=== PATIENT | female | born 1955 | race Caucasian/White ===

== ENCOUNTER 2019-04-26 13:27 | Emergency (ER) | payer BC, MEDICAID, OTHER ==
[2019-04-26] MEDS ORDERED: Sodium Chloride 0.9% 2.5 ML Syringe FLUSH PRN (14:04)
[2019-04-26] MEDS ORDERED: Sodium Chloride 0.9% 10 ML Syringe FLUSH PRN (14:04)
--- NOTE | 2019-04-26 14:47 | EDM.PDOC ---
ED HPI GENERAL MEDICAL PROBLEM - General Chief Complaint: Abdominal Pain Stated Complaint: NAUSEA/VOMITING/DIAHREA Time Seen by Provider: 04/26/19 14:39 - History of Present Illness INITIAL COMMENTS - FREE TEXT/NARRATIVE: HISTORY AND PHYSICAL: History of present illness: Patient is a 63-year-old white female who has a remote history of irritable bowel syndrome presents with concern of intermittent abdominal pain off and on for approximately 1 month with some diarrhea she denies vomiting fever chills or other complaints last episode diarrhea was this morning. Patient also has history of hypertension Review of systems: As per history of present illness and below otherwise all systems reviewed and negative. Past medical history: As per history of present illness and as reviewed below otherwise noncontributory. Surgical history: As per history of present illness and as reviewed below otherwise noncontributory. Social history: No reported history of drug or alcohol abuse. Family history: As per history of present illness and as reviewed below otherwise noncontributory. Physical exam: HEENT: Atraumatic, normocephalic, pupils reactive, negative for conjunctival pallor or scleral icterus, mucous membranes moist, throat clear, neck supple, nontender, trachea midline. Lungs: Clear to auscultation, breath sounds equal bilaterally, chest nontender. Heart: S1S2, regular, negative for clicks, rubs, or JVD. Abdomen: Soft, nondistended, no localized tenderness Negative for masses or hepatosplenomegaly. Negative for costovertebral tenderness. Pelvis: Stable nontender. Genitourinary: Deferred. Rectal: Deferred. Extremities: Atraumatic, negative for cords or calf pain. Neurovascular unremarkable. Neuro: Awake, alert, oriented. Cranial nerves II through XII unremarkable. Cerebellum unremarkable. Motor and sensory unremarkable throughout. Exam nonfocal. Diagnostics: CBC CMP UA lipase stool for C&S O&P C. difficile CT abdomen and pelvis Therapeutics: Saline 1 L bolus labetalol 20 mg IV Impression: #1 intermittent abdominal pain #2 diarrhea #3 hypertension Definitive disposition and diagnosis as appropriate pending reevaluation and review of above. Abdominal Pain Score (Numeric/FACES): 7 - Related Data Allergies Allergy/AdvReac Type Severity Reaction Status Date / Time No Known Allergies Allergy Verified 04/26/19 13:42 Home Meds: Home Meds Aspirin [Opal Chewable Aspirin] 81 mg PO DAILY 04/24/14 [History] Metoprolol Succinate 50 mg PO DAILY 04/24/14 [History] Rosuvastatin Calcium [Crestor] 40 mg PO DAILY 05/26/16 [History] Escitalopram [Lexapro] 10 mg PO DAILY 04/26/19 [History] Valsartan/Hydrochlorothiazide [Diovan Hct 160-12.5 mg Tab] 1 tab PO DAILY [History] Past Medical History - Past Health History Medical/Surgical History: Denies Medical/Surgical History HEENT History: Reports: Impaired Vision Cardiovascular History: Reports: High Cholesterol, Hypertension, [place], Stents Other Cardiovascular History: s/p coronary stent Respiratory History: Reports: None Gastrointestinal History: Reports: Colon Polyp Other Gastrointestinal History: hx diverticulitis Genitourinary History: Reports: Renal Calculus 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: Musculoskeletal History: Reports: Fracture, Fibromyalgia Other Musculoskeletal History: left leg fracture, but no surgery Neurological History: Reports: None Psychiatric History: Reports: Anxiety Endocrine/Metabolic History: Reports: Obesity/BMI 30+ Hematologic History: Reports: Blood Transfusion(s) Other Hematologic History: blood transfusion after child Immunologic History: Reports: None Oncologic (Cancer) History: Reports: None Dermatologic History: Reports: None - Infectious Disease History Infectious Disease History: Reports: Chicken Pox, Measles, Mumps - Past Surgical History Head Surgeries/Procedures: Reports: None Cardiovascular Surgical History: Reports: Coronary Artery Stent Female Surgical History: Reports: Hysterectomy, Salpingo-Oophorectomy Other Musculoskeletal Surgeries/Procedures:: left big toe surgery Social & Family History - Family History Family Medical History: Noncontributory - Tobacco Use Smoking Status *Q: Current Every Day Smoker Years of Tobacco use: 20 Packs/Tins Daily: 0.2 - Caffeine Use Caffeine Use: Reports: Coffee Caffeine Use Comment: 2cups/day - Recreational Drug Use Recreational Drug Use: No ED ROS GENERAL - Review of Systems Review Of Systems: ROS reveals no pertinent complaints other than HPI. ED EXAM, GENERAL - Physical Exam Exam: See Below (See dictation) Course - Vital Signs Text/Narrative:: Patient's refusing CT scan refusing labetalol refusing any further interventions she requests discharged AGAINST MEDICAL ADVICE understands risks and advised to return if she has any change in heart and follow-up SHAE with her private medical doctor Last Recorded V/S: Last Vital Signs Temp 36.4 C 04/26/19 13:37 Pulse 56 L 04/26/19 13:37 Resp 18 04/26/19 13:37 BP 210/100 H 04/26/19 13:37 Pulse Ox 98 04/26/19 13:37 - Orders/Labs/Meds Orders: Active Orders 24 hr Category Date Time Status Abdomen Pelvis wo Cont [CT] Stat Exams 04/26/19 14:41 Ordered CDIFF TOX A+B [OP] Stat Lab 04/26/19 14:42 Ordered CULTURE STOOL + CAMPY+SHIGATOX [RM] Stat Lab 04/26/19 14:42 Ordered Sodium Chloride 0.9% [Saline Flush] Med 04/26/19 14:04 Active 10 ml FLUSH ASDIRECTED PRN Sodium Chloride 0.9% [Saline Flush] Med 04/26/19 14:04 Active 2.5 ml FLUSH ASDIRECTED PRN Isolation [COMM] Stat Oth 04/26/19 14:42 Ordered Saline Lock Insert [OM.PC] Stat Oth 04/26/19 14:04 Ordered Medication Orders Sodium Chloride (Saline Flush) 10 ml FLUSH ASDIRECTED PRN PRN Reason: Keep Vein Open Sodium Chloride (Saline Flush) 2.5 ml FLUSH ASDIRECTED PRN PRN Reason: Keep Vein Open Labs: Laboratory Tests 04/26/19 04/26/19 04/26/19 Range/Units 14:04 14:10 15:00 WBC 8.44 (4.0-11.0) K/uL RBC 4.35 (4.30-5.90) M/uL Hgb 13.2 (12.0-16.0) g/dL Hct 39.8 (36.0-46.0) % MCV 91.5 (80.0-98.0) fL MCH 30.3 (27.0-32.0) pg MCHC 33.2 (31.0-37.0) g/dL RDW Std Deviation 46.8 (28.0-62.0) fl RDW Coeff of Sundeep 14 (11.0-15.0) % Plt Count 316 (150-400) K/uL MPV 10.00 (7.40-12.00) fL Neut % (Auto) 68.0 (48.0-80.0) % Lymph % (Auto) 21.0 (16.0-40.0) % Cataño % (Auto) 7.2 (0.0-15.0) % Eos % (Auto) 3.4 (0.0-7.0) % Baso % (Auto) 0.4 (0.0-1.5) % Neut # (Auto) 5.7 (1.4-5.7) K/uL Lymph # (Auto) 1.8 (0.6-2.4) K/uL Cataño # (Auto) 0.6 (0.0-0.8) K/uL Eos # (Auto) 0.3 (0.0-0.7) K/uL Baso # (Auto) 0.0 (0.0-0.1) K/uL Nucleated RBC % 0.0 /100WBC Nucleated RBCs # 0 K/uL Sodium 142 (136-145) mmol/L Potassium 4.2 (3.5-5.1) mmol/L Chloride 107 (98-107) mmol/L Carbon Dioxide 25.6 (21.0-32.0) mmol/L BUN 12 (7.0-18.0) mg/dL Creatinine 0.7 (0.6-1.0) mg/dL Est Cr Clr Drug Dosing 74.98 mL/min Estimated GFR (MDRD) > 60.0 ml/min Glucose 89 (74-106) mg/dL Calcium 8.9 (8.5-10.1) mg/dL Total Bilirubin 0.2 (0.2-1.0) mg/dL AST 22 (15-37) IU/L ALT 22 (14-63) IU/L Alkaline Phosphatase 123 H (46-116) U/L Total Protein 6.9 (6.4-8.2) g/dL Albumin 3.8 (3.4-5.0) g/dL Globulin 3.1 (2.6-4.0) g/dL Albumin/Globulin Ratio 1.2 (0.9-1.6) Lipase 253 (73-393) U/L Urine Color YELLOW Urine Appearance CLEAR Urine pH 6.5 (5.0-8.0) Ur Specific Dike 1.010 (1.001-1.035) Urine Protein NEGATIVE (NEGATIVE) mg/dL Urine Glucose (UA) NEGATIVE (NEGATIVE) mg/dL Urine Ketones NEGATIVE (NEGATIVE) mg/dL Urine Occult Blood TRACE-LYSED H (NEGATIVE) Urine Nitrite NEGATIVE (NEGATIVE) Urine Bilirubin NEGATIVE (NEGATIVE) Urine Urobilinogen 0.2 (<2.0) EU/dL Ur Leukocyte Esterase NEGATIVE (NEGATIVE) Urine RBC NONE SEEN (0-2/HPF) Urine WBC NONE SEEN (0-5/HPF) Ur Epithelial Cells RARE (NONE-FEW) Urine Bacteria RARE (NEGATIVE) Meds: Medications Generic Name Dose Route Start Last Admin Trade Name Freq PRN Reason Stop Dose Admin Sodium Chloride 10 ml 04/26/19 14:04 Saline Flush FLUSH ASDIRECTED PRN Keep Vein Open Sodium Chloride 2.5 ml 04/26/19 14:04 Saline Flush FLUSH ASDIRECTED PRN Keep Vein Open Discontinued Medications Generic Name Dose Route Start Last Admin Trade Name Freq PRN Reason Stop Dose Admin Acetaminophen 1,000 mg 04/26/19 15:02 Tylenol Extra Strength PO 04/26/19 15:03 ONETIME ONE Ketorolac Tromethamine 30 mg 04/26/19 14:56 04/26/19 15:02 Toradol IVPUSH 04/26/19 14:57 Not Given ONETIME ONE Labetalol HCl 20 mg 04/26/19 15:09 Normodyne IVPUSH 04/26/19 15:10 ONETIME ONE Protocol Departure - Departure Time of Disposition: 15:51 Disposition: Against Medical Advice 07 Condition: Undetermined Clinical Impression: Abdominal pain, Hypertension, Medical non-compliance - Discharge Information Referrals: Mukul Sapp MD [Primary Care Provider] - Forms: ED Department Discharge Additional Instructions: The following information is given to patients seen in the emergency department who are being discharged to home. This information is to outline your options for follow-up care. We provide all patients seen in our emergency department with a follow-up referral. The need for follow-up, as well as the timing and circumstances, are variable depending upon the specifics of your emergency department visit. If you don't have a primary care physician on staff, we will provide you with a referral. We always advise you to contact your personal physician following an emergency department visit to inform them of the circumstance of the visit and for follow-up with them and/or the need for any referrals to a consulting specialist. The emergency department will also refer you to a specialist when appropriate. This referral assures that you have the opportunity for followup care with a specialist. All of these measure are taken in an effort to provide you with optimal care, which includes your followup. Under all circumstances we always encourage you to contact your private physician who remains a resource for coordinating your care. When calling for followup care, please make the office aware that this follow-up is from your recent emergency room visit. If for any reason you are refused follow-up, please contact the [facility] emergency department at and asked to speak to the emergency department charge nurse. Continue current home meds follow-up with private medical doctor SHAE return as needed as discussed - My Orders Last 24 Hours: My Active Orders 04/26/19 14:41 Abdomen Pelvis wo Cont [CT] Stat 04/26/19 14:42 CDIFF TOX A+B [OP] Stat CULTURE STOOL + CAMPY+SHIGATOX [RM] Stat Isolation [COMM] Stat - Assessment/Plan Last 24 Hours: My Active Orders 04/26/19 14:41 Abdomen Pelvis wo Cont [CT] Stat 04/26/19 14:42 CDIFF TOX A+B [OP] Stat CULTURE STOOL + CAMPY+SHIGATOX [RM] Stat Isolation [COMM] Stat
[2019-04-26] MEDS ORDERED: Ketorolac 30 MG/ML SDV IVPUSH ONE (14:56)
[2019-04-26] MEDS ORDERED: Acetaminophen 500 MG Tab PO ONE (15:02)
[2019-04-26] MEDS ORDERED: Labetalol 100 MG/20 ML MDV IVPUSH ONE (15:09)
[2019-04-26 15:11] LABS: CHLORIDE,CL 107 mmol/L (98-107); SODIUM,NA 142 mmol/L (136-145)
[2019-04-26 17:16] VITALS: BP 208/82
== END 2019-04-26 15:50 | disposition left against medical advice (07) ==
LOC: MW.ED 13:27
DX: R19.7 Diarrhea, unspecified (principal); R10.9 Unspecified abdominal pain; Z91.19 Patient's noncompliance with other medical treatment and regimen; I10 Essential (primary) hypertension; I25.2 Old myocardial infarction; Z79.82 Long term (current) use of aspirin; Z79.899 Other long term (current) drug therapy; E78.00 Pure hypercholesterolemia, unspecified; F17.210 Nicotine dependence, cigarettes, uncomplicated
CPT/HCPCS: 36415; 80053; 81001; 83690; 85025; 99284; J3490

== ENCOUNTER 2019-10-19 07:49 | Day surgery (SDC) | payer BC ==
[~2019-10-19 07:49] MED LIST: Lactated Ringers 1,000 ML IV SCH
[2019-10-19] MEDS ORDERED: Propofol 200 MG/20 ML SDV ONE ×3 (07:57→10:11)
[2019-10-19] MEDS ORDERED: fentaNYL 100 MCG/2 ML SDV ONE (07:57)
[2019-10-19] MEDS ORDERED: Midazolam 1 MG/ML 2 ML SDV ONE (07:57)
[2019-10-19] MEDS ORDERED: Lidocaine 2% 5 ML SDV ONE (07:57)
--- NOTE | 2019-10-19 08:47 | PCM.PREANE ---
Preanesthetic Assessment - Anesthesia/Transfusion/Family Hx Anesthesia History: Prior Anesthesia Reaction Other Type of Anesthesia Reaction Comment: hard to put to sleep because of anxiety Family History of Anesthesia Reaction: No Transfusion History: Prior Transfusion Without Reaction Intubation History: Unknown - Review of Systems General: No Symptoms Pulmonary: No Symptoms Cardiovascular: No Symptoms Gastrointestinal: Abdominal Pain Neurological: No Symptoms Other: Reports: None - Physical Assessment NPO Status Date: 10/18/19 NPO Status Time: 21:00 Vital Signs: Last Vital Signs Temp 35.2 C 10/19/19 08:00 Pulse 74 10/19/19 08:00 Resp 18 10/19/19 08:00 BP 191/86 H 10/19/19 08:00 Pulse Ox 99 10/19/19 08:00 Height: 5 ft 5 in Weight: 84.368 kg ASA Class: 2 Mental Status: Alert & Oriented x3 Airway Class: Mallampati = 2 Dentition: Reports: Normal Dentition Thyro-Mental Finger Breadths: 3 Mouth Opening Finger Breadths: 3 ROM/Head Extension: Full Lungs: Clear to Auscultation, Normal Respiratory Effort Cardiovascular: Regular Rate, Regular Rhythm - Allergies Allergies/Adverse Reactions: Allergies Allergy/AdvReac Type Severity Reaction Status Date / Time ketorolac [From Toradol] Allergy Nausea and Verified 10/14/19 13:19 Vomiting - Blood Blood Available: No - Anesthesia Plan Pre-Op Medication Ordered: None - Acknowledgements Anesthesia Type Planned: MAC Pt an Appropriate Candidate for the Planned Anesthesia: Yes Alternatives and Risks of Anesthesia Discussed w Pt/Guardian: Yes Pt/Guardian Understands and Agrees with Anesthesia Plan: Yes PreAnesthesia Questionnaire - Past Health History Medical/Surgical History: Denies Medical/Surgical History HEENT History: Reports: Other (See Below) Other HEENT History: wears glasses Cardiovascular History: Reports: High Cholesterol, Hypertension, [place] ('02) Other Cardiovascular History: s/p coronary stent '02 Respiratory History: Reports: Other (See Below) Other Respiratory History: uses an inhaler when she has URI- maybe twice a year Gastrointestinal History: Reports: Colon Polyp, Diverticulosis, Hepatitis, Hiatal Hernia Other Gastrointestinal History: hx of Hepatitis C- was treated Genitourinary History: Reports: Renal Calculus Other Genitourinary History: has passed kidney stones 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: Musculoskeletal History: Reports: Fracture, Fibromyalgia Other Musculoskeletal History: hx of fx wrist and fibula Neurological History: Reports: Migraines Psychiatric History: Reports: Anxiety, Depression, Panic Attack Endocrine/Metabolic History: Reports: Obesity/BMI 30+ Hematologic History: Reports: Blood Transfusion(s) Other Hematologic History: blood transfusion after child Immunologic History: Reports: None Oncologic (Cancer) History: Reports: None Dermatologic History: Reports: None - Infectious Disease History Infectious Disease History: Reports: Chicken Pox, Hepatitis C, Measles, Mumps - Past Surgical History Head Surgeries/Procedures: Reports: None Cardiovascular Surgical History: Reports: Coronary Artery Stent Other Cardiovascular Surgeries/Procedures: [place] in 2001, denies chest pain SOB and edema since then GI Surgical History: Reports: Cholecystectomy, Colonoscopy (), EGD Female Surgical History: Reports: Hysterectomy, Oophorectomy, Tubal Ligation Musculoskeletal Surgical History: Reports: Other (See Below) Other Musculoskeletal Surgeries/Procedures:: bone chip removed from toe - SUBSTANCE USE Smoking Status *Q: Current Every Day Smoker (down to 1 pack per week, trying to quit) Tobacco Use Within Last Twelve Months: Cigarettes Recreational Drug Use History: No - HOME MEDS Home Medications: Home Meds Aspirin [Opal Chewable Aspirin] 81 mg PO DAILY 04/24/14 [History] Metoprolol Succinate 50 mg PO BEDTIME 04/24/14 [History] Rosuvastatin Calcium [Crestor] 20 mg PO BEDTIME 05/26/16 [History] Escitalopram [Lexapro] 20 mg PO DAILY 04/26/19 [History] Albuterol Sulfate [Proair Hfa] 2 puff INH Q8H PRN 10/14/19 [History] Multivitamin [Multiple Vitamins] 1 tab PO DAILY 10/14/19 [History] Nitroglycerin 0.3 mg PO ASDIRECTED PRN 10/14/19 [History] Telmisartan 20 mg PO BEDTIME 10/14/19 [History] oxyCODONE HCl/Acetaminophen [Endocet 10-325 mg Tablet] 1 tab PO Q8H PRN [History] - CURRENT (IN HOUSE) MEDS Current Meds: Current Medications Lactated Ringer's (Ringers, Lactated) 1,000 mls @ 125 mls/hr IV ASDIRECTED LLOYD Last Admin: 10/19/19 08:10 Dose: 125 mls/hr Discontinued Medications Fentanyl (Sublimaze) Confirm Administered Dose 100 mcg .ROUTE .STK-MED ONE Stop: 10/19/19 07:58 Lidocaine (Xylocaine-Mpf 2%) Confirm Administered Dose 5 ml .ROUTE .STK-MED ONE Stop: 10/19/19 07:58 Midazolam HCl (Versed 1 Mg/Ml) Confirm Administered Dose 2 mg .ROUTE .STK-MED ONE Stop: 10/19/19 07:58 Propofol (Diprivan 20 Ml) Confirm Administered Dose 200 mg .ROUTE .STK-MED ONE Stop: 10/19/19 07:58
--- NOTE | 2019-10-19 10:44 | PCM.OPNOTE ---
- General Post-Op/Procedure Note Date of Surgery/Procedure: 10/19/19 Operative Procedure(s): egd w bx. attempted colonoscopy Findings: see [id number] Pre Op Diagnosis: BRBPR Post-Op Diagnosis: Same Anesthesia Technique: Moderate Sedation Primary Surgeon: Fernando Gutiérrez Complications: None Condition: Good Free Text/Narrative:: Intake & Output 10/18/19 10/19/19 10/19/19 22:59 06:59 14:59 Intake Total 650 Balance 650
[2019-10-19 10:45] VITALS: BP 130/62; PULSE 57
--- NOTE | 2019-10-19 10:58 | PCM.POSTAN ---
POST ANESTHESIA ASSESSMENT - MENTAL STATUS Mental Status: Alert, Oriented - VITAL SIGNS Vital Signs: Last Vital Signs Temp 35.6 C 10/19/19 10:40 Pulse 57 L 10/19/19 10:40 Resp 16 10/19/19 10:40 BP 130/62 10/19/19 10:40 Pulse Ox 98 10/19/19 10:40 - RESPIRATORY Respiratory Status: Respiratory Rate WNL, Airway Patent, O2 Saturation Stable - CARDIOVASCULAR CV Status: Pulse Rate WNL, Blood Pressure Stable - GASTROINTESTINAL GI Status: No Symptoms - PAIN Pain Score: 0 - POST OP HYDRATION Hydration Status: Adequate & Stable - OBSERVATIONS Free Text/Narrative:: No anesthesia problems
--- NOTE | 2019-10-19 11:02 | PCM48HPAN ---
Post Anesthesia Note - EVALUATION WITHIN 48HRS OF ANESTHETIC Vital Signs in Normal Range: Yes Patient Participated in Evaluation: Yes Respiratory Function Stable: Yes Airway Patent: Yes Cardiovascular Function Stable: Yes Hydration Status Stable: Yes Pain Control Satisfactory: Yes Nausea and Vomiting Control Satisfactory: Yes Mental Status Recovered: Yes Vital Signs: Last Vital Signs Temp 35.6 C 10/19/19 10:40 Pulse 57 L 10/19/19 10:40 Resp 16 10/19/19 10:40 BP 130/62 10/19/19 10:40 Pulse Ox 98 10/19/19 10:40 - COMMENTS/OBSERVATIONS Free Text/Narrative:: No anesthesia problems
--- NOTE | 2019-10-19 11:50 | OR ---
SURGEON: Fernando Gutiérrez MD DATE OF PROCEDURE: 10/19/2019 PREOPERATIVE DIAGNOSIS: Bright red blood per rectum. PROCEDURES PERFORMED: Esophagogastroduodenoscopy with biopsy and colonoscopy attempt. DESCRIPTION OF PROCEDURE: EGD: The patient was taken to the endoscopy room, and with the MAC ARTIST, Diprivan was administered. A well-lubricated EGD scope was gently inserted through the oropharynx, down the esophagus, passing through the gastroesophageal junction, into the stomach. The mucosa was examined upon the passage. Any etiology will be noted. Once in the stomach, we continued to advance to the distal antrum, passed through the pylorus into the second portion of the duodenum. Again, the mucosa was examined for any abnormality and etiology. The scope was then retrieved back to the stomach and then retroflexed to look at the fundus of the stomach. If a biopsy was indicated, we will biopsy the antrum, body, and gastroesophageal junction. The air will be sucked out while the scope is retrieved to reduce the patient's discomfort. The patient tolerated the procedure well. There were no intraoperative complications. Dr. Gutiérrez was present through the whole procedure. Prior to surgery, a time-out had been called, the patient identified, procedure identified and antibiotic administered. EGD findings: 1. The patient is easily sedated with MAC ARTIST and Diprivan, the patient is soundly snoring. 2. Oropharynx and proximal esophagus free of disease and distal esophagus at distance GE junction at 35 shows a little bit inflamed. Mild esophagitis. Stomach rugae are normal in appearance. There is some petechiae appearance of the antrum, but there is no ulcer per se and no bleeding. Duodenum is grossly normal. Retroflexed look at the fundus of the stomach, the patient has a hiatal hernia. Biopsy done at antrum, body, and GE junction and sucked out the gas while scope pulling. During the whole study, there is no food, blood, or ulcer observed. A little bit of petechiae, blood, but not estrella blood clot. Colonoscopy study: The patient was taken to endoscopy room, put in a left decub position, left side down, right side up. On rectal inspection, the patient had some external hemorrhoids. On digital examination, there was no mass. A well- lubricated Olympus endoscope was gently inserted through the anal opening and into the rectum. Under direct supervision, the colonoscope was gently advanced to 20 cm and saw some diverticulosis and encountered several stool balls. No signs or symptoms of diverticulitis, but could not advance for almost like 5 minutes. Kept on attempting, just failed to advance through the sigmoid and descending colon junction and colonoscopy aborted. Through the whole procedure, only see a mild diverticulosis, no polyp, mass, and stool was yellow. No blood clot or dark stool. ANSLEY / VEGA /[id number] MTDHaily
== END 2019-10-19 11:10 | disposition home or self-care (01) ==
LOC: MW.SDS 07:49
PROVIDERS: ATTEND Surgery
DX: K57.31 Diverticulosis of large intestine without perforation or abscess with bleeding (principal); K29.51 Unspecified chronic gastritis with bleeding; K64.4 Residual hemorrhoidal skin tags; K44.9 Diaphragmatic hernia without obstruction or gangrene; K31.89 Other diseases of stomach and duodenum; K22.8 Other specified diseases of esophagus; K59.00 Constipation, unspecified; F17.210 Nicotine dependence, cigarettes, uncomplicated; M19.079 Primary osteoarthritis, unspecified ankle and foot; Z86.010 Personal history of colon polyps; Z80.0 Family history of malignant neoplasm of digestive organs; Z79.82 Long term (current) use of aspirin; Z79.899 Other long term (current) drug therapy
CPT/HCPCS: 88305; 88312; J2001; J2250; J2704; J3010; J7120